=== PATIENT | female | born 1945 | race Native Hawaiian/Other Pacific Islander ===

== ENCOUNTER 2020-08-06 10:19 | Emergency (ER) | payer OTHER ==
[~2020-08-06] VITALS: Ht 160 cm; Wt 52.2 kg
[2020-08-06 10:19] VITALS: TEMP 99.1
[2020-08-06 10:36] LABS: PLATELET COUNT 158 K/uL (152-353)
[2020-08-06 10:51] LABS: POTASSIUM 3.7 mmol/L (3.6-5.2); SODIUM 135 mmol/L (136-145)
[2020-08-06 10:56] LABS: PARTIAL THROMBOPLASTIN TIME 23.2 SECONDS (24.5-33.6)
[2020-08-06 12:03] VITALS: BP 109/63
== END 2020-08-06 12:03 | disposition home or self-care (01) ==
LOC: ED 10:19
PROVIDERS: Hospitalist
DX: S09.8XXA Other specified injuries of head, initial encounter (principal); S53.491A Other sprain of right elbow, initial encounter; S50.311A Abrasion of right elbow, initial encounter; M25.59 Pain in other specified joint; W18.39XA Other fall on same level, initial encounter; Y92.098 Other place in other non-institutional residence as the place of occurrence of the external cause
CPT/HCPCS: 80053; 80320; 82550; 83880; 84484; 85027; 85610; 85730; 93005; 99283

== ENCOUNTER 2020-08-09 13:06 | Inpatient (IN) | payer OTHER | END 2020-08-27 08:00 | disposition still patient (30) | LOC: PAVC 13:06 | PROVIDERS: ADMIT Internal Medicine ==

== ENCOUNTER 2020-08-10 08:01 | Outpatient (CLI) | payer OTHER ==
[2020-08-10 08:10] LABS: PLATELET COUNT 171 K/uL (152-353)
[2020-08-10 08:36] LABS: POTASSIUM 4.3 mmol/L (3.6-5.2)
== END 2020-08-10 22:11 | disposition home or self-care (01) ==
LOC: LAB 08:01
PROVIDERS: Internal Medicine
DX: I10 Essential (primary) hypertension (principal); G25.0 Essential tremor; Z79.899 Other long term (current) drug therapy; E55.9 Vitamin D deficiency, unspecified; F41.9 Anxiety disorder, unspecified; D50.8 Other iron deficiency anemias
CPT/HCPCS: 80053; 82306; 84443; 85027; 87081

== ENCOUNTER 2020-08-23 18:47 | Outpatient (CLI) | payer OTHER | END 2020-08-23 23:29 | disposition home or self-care (01) | LOC: RAD 18:47 | DX: M79.642 Pain in left hand (principal) ==

== ENCOUNTER 2020-08-27 09:00 | Inpatient (IN) | payer OTHER | END 2020-09-26 12:23 | disposition still patient (30) | LOC: PAVC 09:00 | PROVIDERS: ADMIT Internal Medicine; ATTEND Internal Medicine ==

== ENCOUNTER 2020-09-04 11:01 | Outpatient (CLI) | payer OTHER | END 2020-09-04 19:08 | disposition home or self-care (01) | LOC: RAD 11:01 | DX: S62.607A Fracture of unspecified phalanx of left little finger, initial encounter for closed fracture (principal) ==

== ENCOUNTER 2020-09-18 11:14 | Outpatient (CLI) | payer OTHER | END 2020-09-18 19:08 | disposition home or self-care (01) | LOC: RAD 11:14 | PROVIDERS: ATTEND Internal Medicine | DX: S62.607A Fracture of unspecified phalanx of left little finger, initial encounter for closed fracture (principal) ==

== ENCOUNTER 2020-09-20 11:01 | Outpatient (CLI) | payer OTHER | END 2020-09-20 23:46 | disposition home or self-care (01) | LOC: RAD 11:01 | PROVIDERS: ATTEND Internal Medicine | DX: M85.88 Other specified disorders of bone density and structure, other site (principal) ==

== ENCOUNTER 2020-09-26 07:56 | Outpatient (CLI) | payer OTHER | END 2020-09-26 22:22 | disposition home or self-care (01) | LOC: LAB 07:56 | PROVIDERS: ATTEND Internal Medicine | DX: D50.8 Other iron deficiency anemias (principal); M81.0 Age-related osteoporosis without current pathological fracture | CPT/HCPCS: 82310 ==

== ENCOUNTER 2020-09-26 12:30 | Inpatient (IN) | payer OTHER | END 2020-09-27 00:30 | disposition home or self-care (01) | LOC: PAVC 12:30 | PROVIDERS: ADMIT Internal Medicine; ATTEND Internal Medicine ==